=== PATIENT | male | born 1990 ===

== ENCOUNTER 2019-08-05 06:09 | Observation (INO) | payer OTHER ==
[2019-08-05] MEDS ORDERED: SODIUM CHLORIDE 0.9% 1000 ML IV SOLN IV ONE (06:34)
[2019-08-05] MEDS ORDERED: LORazepam 2 MG/ML VIAL ONE (06:34)
[2019-08-05] MEDS ORDERED: ZIPRASIDONE MESYLATE 20 MG VIAL IM ONE ×2 (06:34→06:37)
[2019-08-05] MEDS ORDERED: WATER FOR INJ Sterile (PF) 10 ML ONE (06:35)
[2019-08-05] MEDS ORDERED: LORazepam 2 MG/ML VIAL IM ONE (06:36)
[2019-08-05] MEDS ORDERED: PIPERACIL/TAZOBACTA 4.5/NS 100 4.5 GM/100 ML VIAL IV ONE (06:39)
--- NOTE | 2019-08-05 06:59 | Emergency Department Report ---
ED General Adult HPI - General Chief complaint: Altered Mental Status Stated complaint: SELF DESTRUCTIVE BEHAVIOR Time Seen by Provider: 08/05/19 06:23 Source: EMS, client services coordinator Mode of arrival: Ambulatory Limitations: Altered Mental Status - History of Present Illness Initial comments: This is a 29 year old man with a psychiatric disorder treated with Remeron. His family has brought him here today extensively as he is not acting right. He has been biting his thumb and pinching his knee both on the left. He is not acting the way he usually does. He is also wandering and difficult to control. They did not identify any other specific problem. They denied a full systems review to include fever or chills. The patient probably has some communication difficulty at his baseline. In addition the family speaks Qatari. I am able to get the basic history from the family in Uzbek. They are not identifying any other problem on systems review. However, the patient presents with a significant tachycardia. He does feel warm to the touch. His axillary temperature was greater than 99. The oral temperature was unreliable per the nurse. Later a steroid believe arrived at the hospital. Her Uzbek was a bit improved. On reassessment the patient was also speaking Uzbek. We're both concerned about the self-inflicted red and painful area that was secondary to his s hipinching of the patient's left knee. -: hour(s), days(s) Location: upper extremity (biting fingers) Severity scale (0 -10): 0 - Related Data Allergies Allergy/AdvReac Type Severity Reaction Status Date / Time No Known Allergies Allergy Unverified 08/05/19 06:33 ED Review of Systems ROS: Stated complaint: SELF DESTRUCTIVE BEHAVIOR Other details as noted in HPI Comment: Unobtainable due to pts medical conditions (unobtainable from the patient but all other systems reviewed and negative per the family.) ED Past Medical Hx - Past Medical History Previous Medical History?: Yes Additional medical history: Depression - Surgical History Past Surgical History?: No - Social History Smoking Status: Never Smoker Substance Use Type: None ED Physical Exam - General Limitations: Altered Mental Status General appearance: other (feels warm, agitated) - Head Head exam: Present: atraumatic, normocephalic - Eye Eye exam: Present: normal appearance. Absent: scleral icterus - ENT ENT exam: Present: mucous membranes dry - Neck Neck exam: Present: normal inspection. Absent: tenderness, meningismus - Respiratory Respiratory exam: Present: normal lung sounds bilaterally. Absent: respiratory distress - Cardiovascular Cardiovascular Exam: Present: regular rate, tachycardia - GI/Abdominal GI/Abdominal exam: Present: soft, normal bowel sounds. Absent: distended, tenderness, guarding, rebound, rigid - Extremities Exam Extremities exam: Present: full ROM, normal capillary refill, other (bite of the left distal thumb through dermis ). Absent: pedal edema, joint swelling - Back Exam Back exam: Present: other (unable to inspect) - Neurological Exam Neurological exam: Present: altered, CN II-XII intact (as testable). Absent: motor sensory deficit - Psychiatric Psychiatric exam: Present: agitated - Skin Skin exam: Present: warm, dry, normal color, other (finger bite). Absent: rash ED Course Vital Signs 08/05/19 08/05/19 08/05/19 06:16 06:20 06:30 Temperature 99.5 F Pulse Rate 125 H 134 H 126 H Respiratory 17 22 21 Rate Blood Pressure 153/103 153/103 Blood Pressure 151/93 [Left] O2 Sat by Pulse 99 98 98 Oximetry 08/05/19 08/05/19 08/05/19 06:46 07:00 07:16 Temperature Pulse Rate 124 H 110 H 115 H Respiratory 24 17 16 Rate Blood Pressure 151/93 146/97 146/97 Blood Pressure [Left] O2 Sat by Pulse 98 100 Oximetry 08/05/19 08/05/19 08/05/19 07:25 07:30 07:46 Temperature Pulse Rate 118 H 120 H 111 H Respiratory 19 18 22 Rate Blood Pressure 146/97 146/97 Blood Pressure 146/97 [Left] O2 Sat by Pulse 99 99 98 Oximetry 08/05/19 08/05/19 08/05/19 08:00 08:16 08:30 Temperature Pulse Rate 106 H 107 H 105 H Respiratory 23 22 21 Rate Blood Pressure 97/43 97/43 85/44 Blood Pressure [Left] O2 Sat by Pulse 96 97 95 Oximetry 08/05/19 08/05/19 08:46 09:00 Temperature Pulse Rate 103 H 125 H Respiratory 19 25 H Rate Blood Pressure 85/44 115/74 Blood Pressure [Left] O2 Sat by Pulse 98 98 Oximetry - Reevaluation(s) Reevaluation #1: Patient's mental status has improved with GI and Ativan. He is speaking Uzbek. His sister states he's never had a psychiatric admission. However despite fluids the patient's heart rate is now 135. He is given a dditional fluids. He is given metoprolol and consideration of his tachycardia and elevated. 08/05/19 10:53 08/05/19 10:56 Discussed the patient's persistent tachycardia with the admitting hospitalist Dr. Vaughan. Reevaluation #2: Patient is not medically clear for psychiatric admission. A 1013 will be executed. A sitter has been requested. 08/05/19 10:58 ED Medical Decision Making - Lab Data Result diagrams: 08/05/19 06:45 Laboratory Results - last 24 hr 08/05/19 08/05/19 08/05/19 06:45 06:45 06:45 WBC 11.5 H RBC 5.27 H Hgb 14.2 Hct 43.0 MCV 82 L MCH 27 L MCHC 33 RDW 13.3 Plt Count 256 Lymph % (Auto) 9.9 L Castro % (Auto) 4.7 Eos % (Auto) 1.5 Baso % (Auto) 0.3 Lymph # 1.1 L Castro # 0.5 Eos # 0.2 Baso # 0.0 Seg Neutrophils % 83.6 H Seg Neutrophils # 9.6 H PT 14.0 INR 1.07 APTT 28.9 POC Glucose Lactic Acid 2.40 H* Magnesium Total Creatine Kinase CK-MB (CK-2) CK-MB (CK-2) Rel Index Troponin T NT-Pro-B Natriuret Pep TSH Free T4 Urine Color Urine Turbidity Urine pH Ur Specific Cascade Urine Protein Urine Glucose (UA) Urine Ketones Urine Blood Urine Nitrite Urine Bilirubin Urine Urobilinogen Ur Leukocyte Esterase Urine WBC (Auto) Urine RBC (Auto) Urine Opiates Screen Urine Methadone Screen Ur Barbiturates Screen Ur Phencyclidine Scrn Ur Amphetamines Screen U Benzodiazepines Scrn Urine Cocaine Screen U Marijuana (THC) Screen Drugs of Abuse Note 08/05/19 08/05/19 08/05/19 06:45 06:45 07:27 WBC RBC Hgb Hct MCV MCH MCHC RDW Plt Count Lymph % (Auto) Castro % (Auto) Eos % (Auto) Baso % (Auto) Lymph # Castro # Eos # Baso # Seg Neutrophils % Seg Neutrophils # PT INR APTT POC Glucose Lactic Acid 1.20 Magnesium 1.40 L Total Creatine Kinase 295 H CK-MB (CK-2) 2.6 CK-MB (CK-2) Rel Index 0.8 Troponin T < 0.010 NT-Pro-B Natriuret Pep 15.77 TSH 1.390 Free T4 1.58 H Urine Color Urine Turbidity Urine pH Ur Specific Cascade Urine Protein Urine Glucose (UA) Urine Ketones Urine Blood Urine Nitrite Urine Bilirubin Urine Urobilinogen Ur Leukocyte Esterase Urine WBC (Auto) Urine RBC (Auto) Urine Opiates Screen Urine Methadone Screen Ur Barbiturates Screen Ur Phencyclidine Scrn Ur Amphetamines Screen U Benzodiazepines Scrn Urine Cocaine Screen U Marijuana (THC) Screen Drugs of Abuse Note 08/05/19 08/05/19 08/05/19 08:00 Unknown Unknown WBC RBC Hgb Hct MCV MCH MCHC RDW Plt Count Lymph % (Auto) Castro % (Auto) Eos % (Auto) Baso % (Auto) Lymph # Castro # Eos # Baso # Seg Neutrophils % Seg Neutrophils # PT INR APTT POC Glucose 104 Lactic Acid Magnesium Total Creatine Kinase CK-MB (CK-2) CK-MB (CK-2) Rel Index Troponin T NT-Pro-B Natriuret Pep TSH Free T4 Urine Color Yellow Urine Turbidity Clear Urine pH 7.0 Ur Specific Cascade 1.005 Urine Protein <15 mg/dl Urine Glucose (UA) Neg Urine Ketones Neg Urine Blood Sm Urine Nitrite Neg Urine Bilirubin Neg Urine Urobilinogen < 2.0 Ur Leukocyte Esterase Neg Urine WBC (Auto) 1.0 Urine RBC (Auto) 13.0 Urine Opiates Screen Presumptive negative Urine Methadone Screen Presumptive negative Ur Barbiturates Screen Presumptive negative Ur Phencyclidine Scrn Presumptive negative Ur Amphetamines Screen Presumptive negative U Benzodiazepines Scrn Presumptive negative Urine Cocaine Screen Presumptive negative U Marijuana (THC) Screen Presumptive negative Drugs of Abuse Note Disclamer - EKG Data -: EKG Interpreted by Ma EKG shows normal: sinus rhythm, axis, intervals, QRS complexes, ST-T waves Rate: tachycardia - EKG Data Interpretation: no acute changes - Radiology Data Radiology results: report reviewed (chest x-ray no acute process), image reviewed Critical care attestation.: If time is entered above; I have spent that time in minutes in the direct care of this critically ill patient, excluding procedure time. ED Disposition Clinical Impression: Acute psychosis, Tachycardia, Elevated serum free T4 level, Elevated lactic acid level Disposition: OP ADMIT IP TO THIS HOSP Is pt being admited?: Yes Does the pt Need Aspirin: Yes Condition: Stable Referrals: PRIMARY CARE, [Primary Care Provider] - 3-5 Days Time of Disposition: 11:00
[2019-08-05 07:04] LABS: Basophils % (Auto) 0.3 % (0.0-1.8); Eosinophils # (Auto) 0.2 K/mm3 (0.0-0.4); Eosinophils % (Auto) 1.5 % (0.0-4.3); Hemoglobin 14.2 gm/dl (11.8-15.2); Lymphocytes # (Auto) 1.1 K/mm3 (1.2-5.4); Lymphocytes % (Auto) 9.9 % (13.4-35.0); Mean Corpuscular HGB Conc 33 % (32-34); Mean Corpuscular Volume 82 fl (84-94); Monocytes # (Auto) 0.5 K/mm3 (0.0-0.8); Monocytes % (Auto) 4.7 % (0.0-7.3); Platelet Count 256 K/mm3 (140-440); Red Blood Count 5.27 M/mm3 (3.65-5.03); Red Cell Distribution Width 13.3 % (13.2-15.2)
[2019-08-05 07:11] LABS: Bilirubin,Urine NEG (Negative); Blood,Urine SM (Negative); Color,Urine Yellow (Yellow); Protein,Urine <15 mg/dL mg/dL (Negative); Urobilinogen,Urine < 2.0 mg/dL (<2.0)
[2019-08-05 07:15] LABS: INR 1.07 (0.87-1.13); Partial Thromboplastin Time 28.9 Sec. (24.2-36.6)
--- NOTE | 2019-08-05 07:15 | XRay Report ---
CHEST 1 VIEW INDICATION: htn. Altered mental status COMPARISON: None FINDINGS: Support devices: None. Heart: Within normal limits. Lungs/Pleura: No acute air space or interstitial disease. Additional findings: None. IMPRESSION: 1. No acute findings. Signer Name: Phil Yousif MD Signed: 08/05/2019 7:10 AM Workstation Name: [id number]
[2019-08-05 07:18] LABS: Amphetamine Screen,Urine PRESUMPTIVE NEGATIVE; Benzodiazepines Screen,Urine PRESUMPTIVE NEGATIVE; Cannabinoid Screen,Urine PRESUMPTIVE NEGATIVE; Cocaine Screen,Urine PRESUMPTIVE NEGATIVE; Methadone Screen,Urine PRESUMPTIVE NEGATIVE; Opiate Screen,Urine PRESUMPTIVE NEGATIVE
[2019-08-05 07:23] LABS: Creatine Kinase MB 2.6 ng/mL (0.0-4.0)
[2019-08-05 07:29] LABS: Free T4 (Free Thyroxine) 1.58 ng/dL (0.76-1.46)
[2019-08-05] MEDS ORDERED: MAGNESIUM SULFATE 2 GM/50 ML BAG IV ONE (09:45)
[2019-08-05] MEDS ORDERED: SODIUM CHLORIDE 0.9% 1000 ML 1,000 ML IV ONE ×2 (10:16→11:05)
--- NOTE | 2019-08-05 10:29 | History and Physical Report ---
History of Present Illness Date of examination: 08/05/19 Date of admission: 08/05/19 Chief complaint: Altered level of consciousness and bizarre behavior History of present illness: 29-year-old male patient with significant past medical history of some unknown psych disorder, no proper history either from the patient Or the family at the bedside was brought to the emergency room with altered level of consciousness, bizarre behavior Agitation, biting his thumb pinching his knees and acting strange. Family reports that he has been wandering and was very difficult to control. Patient recently returned from [place] in April 2019, And acting strange ever since he returned No history suggestive of fever, nausea vomiting, shortness of breath or cough Family reports that he has history of depression and is on some psych medications No other history available At the time of my evaluation patient is confused speaking only 1 or 2 words in Indonesian Agitated, requiring restraints Initial work-up is consistent with leukocytosis hypomagnesemia mild elevation of CK and abnormal free T4 urine drug screen negative Chest x-ray no acute abnormality Past History Past Medical History: other (Depression) Past Surgical History: No surgical history (No known surgical history) Social history: no significant social history (No known social history) Family history: no significant family history (No known family history) Medications and Allergies Allergies Allergy/AdvReac Type Severity Reaction Status Date / Time No Known Allergies Allergy Unverified 08/05/19 06:33 Home Medications Medication Instructions Recorded Confirmed Last Taken Type Mirtazapine 30 mg PO QHS 08/05/19 08/05/19 08/04/19 History Sertraline [Zoloft] 100 mg PO QAM 08/05/19 08/05/19 08/04/19 History Active Meds: Active Medications Sodium Chloride (Nacl 0.9% 1000 Ml) 1,000 mls @ 999 mls/hr IV BOLUS ONE Stop: 08/05/19 11:16 Last Admin: 08/05/19 10:27 Dose: 999 mls/hr Documented by: Review of Systems ROS unobtainable: due to mental status Exam - Constitutional Vitals: Temp Pulse Resp BP Pulse Ox 99.5 F 125 H 25 H 115/74 98 08/05/19 06:16 08/05/19 09:00 08/05/19 09:00 08/05/19 09:00 08/05/19 09:00 General appearance: Present: mild distress, other (Agitated, confused) - EENT Eyes: Present: PERRL, EOM intact - Neck Neck: Present: supple, normal ROM - Respiratory Respiratory effort: normal Respiratory: bilateral: diminished, negative: rales, rhonchi, wheezing - Cardiovascular Rhythm: regular Heart Sounds: Present: S1 & S2 (Tachycardia) - Extremities Extremities: no ischemia, abnormal (Bite aide left thumb) - Abdominal General gastrointestinal: Present: soft, non-distended, normal bowel sounds - Integumentary Integumentary: Present: clear, warm - Musculoskeletal Musculoskeletal: other (Unable to assess as patient is altered) - Psychiatric Psychiatric: agitated (Confused), other (Unable to assess) - Neurologic Neurologic: moves all extremities Results - Labs CBC & Chem 7: 08/05/19 06:45 Labs: Abnormal lab results 08/05/19 08/05/19 08/05/19 Range/Units 06:45 06:45 06:45 WBC 11.5 H (4.5-11.0) K/mm3 RBC 5.27 H (3.65-5.03) M/mm3 MCV 82 L (84-94) fl MCH 27 L (28-32) pg Lymph % (Auto) 9.9 L (13.4-35.0) % Lymph # 1.1 L (1.2-5.4) K/mm3 Seg Neutrophils % 83.6 H (40.0-70.0) % Seg Neutrophils # 9.6 H (1.8-7.7) K/mm3 Lactic Acid 2.40 H* (0.7-2.0) mmol/L Magnesium 1.40 L (1.7-2.3) mg/dL Total Creatine Kinase 295 H (55-170) units/L Free T4 (0.76-1.46) ng/dL 08/05/19 Range/Units 06:45 WBC (4.5-11.0) K/mm3 RBC (3.65-5.03) M/mm3 MCV (84-94) fl MCH (28-32) pg Lymph % (Auto) (13.4-35.0) % Lymph # (1.2-5.4) K/mm3 Seg Neutrophils % (40.0-70.0) % Seg Neutrophils # (1.8-7.7) K/mm3 Lactic Acid (0.7-2.0) mmol/L Magnesium (1.7-2.3) mg/dL Total Creatine Kinase (55-170) units/L Free T4 1.58 H (0.76-1.46) ng/dL Assessment and Plan --Metabolic encephalopathy/altered level of consciousness Probably secondary to underlying psych disorder Supportive care , neurochecks CT head without contrast --Acute psychosis/bizarre behavior; Patient has history of psych disorder Consult psych, Ativan as needed --H/O Depression: Consult psych --SIRS : Leukocytosis, tachycardia, tachypnea, lactic acidosis Closely monitor --Hypomagnesemia; Replace with mag sulfate monitor electrolytes --Abnormal thyroid function tests; Repeat thyroid panel, and address accordingly --Restraints for safety --DVT prophylaxis Lovenox Follow psych evaluation and recommendations Consider neurology evaluation, neuro work-up Lumbar puncture , MRI brain ,if no improvement of symptoms Will consider ID evaluation as patient recently visited [facility] To rule out infectious causes of patient's encephalopathy Closely monitor and adjust management as needed Plan of care reviewed with the patient and his family Mainly Indonesian-speaking sister
[2019-08-05] MEDS ORDERED: LORazepam 2 MG/ML VIAL IV ONE (10:44)
[2019-08-05] MEDS ORDERED: METOPROLOL TARTRATE 5 MG/5 ML INJ IV ONE (10:45)
[2019-08-05] MEDS: ALPRAZolam 0.5 MG TAB PO PRN ×2 (15:00→21:42)
[2019-08-05] MEDS: METOPROLOL TARTRATE 25 MG TAB PO SCH (21:41)
[2019-08-06] MEDS: LORazepam 2 MG/ML VIAL IV PRN ×2 (02:33→07:02)
[2019-08-06] MEDS: ALPRAZolam 0.5 MG TAB PO PRN ×2 (05:26→21:47)
[2019-08-06] MEDS ORDERED: LORazepam 2 MG/ML VIAL IM SCH (07:30)
[2019-08-06 08:31] LABS: Basophils # (Auto) 0.1 K/mm3 (0.0-0.1); Basophils % (Auto) 1.1 % (0.0-1.8); Eosinophils # (Auto) 0.6 K/mm3 (0.0-0.4); Hematocrit 37.8 % (35.5-45.6); Hemoglobin 12.3 gm/dl (11.8-15.2); Lymphocytes # (Auto) 1.4 K/mm3 (1.2-5.4); Lymphocytes % (Auto) 17.1 % (13.4-35.0); Mean Corpuscular HGB Conc 33 % (32-34); Mean Corpuscular Volume 82 fl (84-94); Monocytes # (Auto) 0.6 K/mm3 (0.0-0.8); Monocytes % (Auto) 7.7 % (0.0-7.3); Platelet Count 232 K/mm3 (140-440); Red Blood Count 4.62 M/mm3 (3.65-5.03); Red Cell Distribution Width 13.4 % (13.2-15.2)
[2019-08-06 09:04] LABS: Free T4 (Free Thyroxine) 1.3 ng/dL (0.76-1.46)
--- NOTE | 2019-08-06 10:41 | Consultation ---
History of Present Illness - Reason for Consult Consult date: 08/06/19 Reason for consult: altered mental status and bizarre behavior - Chief Complaint Chief complaint: Altered level of consciousness and bizarre behavior - History of Present Psychiatric Illness I reviewed the patient's medical record and discussed with the nursing staff the patient's progress. The nurse notes states the patient seems confused, he keeps sitting up and laying back down. He is talking to himself, when he lays back down, he is covering his face with the sheet, and he refused to take it off from his face. Spoke with Charge nurse about setting up [employer]. She says she will have to borrow one from next door. Baylee Myers is a 29y/o male patient who is said to have been admitted for altered mental status, bizarre behavior, and agitation. According to the medical record, the patient has history of depression other psych conditions that he takes medication for. During my first interaction with the patient this morning, he was somnolent. He does not respond to vigorous tactile stimuli. His mother and a sitter are at bedside. The sitter states the patient was "very agitated and the nurse gave him something." I went and seen another patient, and came back to see this patient. He is sitting up in bed with one eye closed. He has his leg pulled up. He is confused, and somewhat bizarre. The patient says he's in "[place]." When oriented to the hospital, he states "yes, the hospital. The emergency room." The patient seems to be obsessing over his knee. He is hitting on his knee with his fist. He tells me his "knee is hurting." He then starts touching and pinching his knee "can you help my knee." When asking the patient about hallucinations, he points toward the door and is peering out in the hallway. The patient starts back obsessing over his knee when asked about suicidal ideation. PAST PSYCHIATRIC HISTORY: Unable to assess due to the patient's disorganizations PAST MEDICAL HISTORY: None reported Family Psychiatric History None reported SOCIAL HISTORY Unable to assess due to the patient's disorganization ROS: Unable to assess due to the patient's disorganization MSE Appearance: Awake. Dressed appropriately Behavior: Bizarre, disorganized Mood: Affect: Restricted Thought Process: responding to internal stimuli Speech: Normal tone and pace Thought Content Unable to assess Consciousness: Alert Cognition/Memory: Impaired Insight/Judgment: Limited Assessment: Schizoaffective Disorder Plan Medications Risperidone 0.25mg po BID to decrease psychosis Prozac 10mg po qd Depakote DR 125mg BID to improve mood Continue home Zoloft 100mg po daily Haldol 5mg po q6h prn agitation Medical: Per primary Disposition: The patient meets the requirement for acute inpatient psychiatric treatment at this time. He may transfer to an appropriate psychiatric facility upon medical clearance. Will continue to follow until transferred Please call with any questions or concerns. Thank you for this consult. Medications and Allergies Allergies Allergy/AdvReac Type Severity Reaction Status Date / Time No Known Allergies Allergy Unverified 08/05/19 06:33 Home Medications Medication Instructions Recorded Confirmed Last Taken Type Mirtazapine 30 mg PO QHS 08/05/19 08/05/19 08/04/19 History Sertraline [Zoloft] 100 mg PO QAM 08/05/19 08/05/19 08/04/19 History Active Meds: Active Medications Alprazolam (Xanax) 0.5 mg PO Q8H PRN PRN Reason: Anxiety Last Admin: 08/06/19 05:26 Dose: 0.5 mg Documented by: Lorazepam (Ativan) 1 mg IV Q4H PRN PRN Reason: Agitation Last Admin: 08/06/19 07:02 Dose: 1 mg Documented by: Lorazepam (Ativan) 1 mg IM ONCE [facility] Stop: 08/06/19 15:00 Last Admin: 08/06/19 07:28 Dose: 1 mg Documented by: Metoprolol Tartrate (Metoprolol) 12.5 mg PO BID [facility] Last Admin: 08/05/19 21:41 Dose: 12.5 mg Documented by: Mirtazapine (Remeron) 30 mg PO QHS [facility] Mental Status Exam - Vital signs Last Vital Signs Temp 98.4 F 08/06/19 05:13 Pulse 122 H 08/06/19 05:13 Resp 16 08/06/19 05:13 BP 148/98 08/06/19 05:13 Pulse Ox 98 08/06/19 05:13 Results Result Diagrams: 08/06/19 08:11 Abnormal lab results 08/06/19 08/06/19 Range/Units 08:11 08:11 MCV 82 L (84-94) fl MCH 27 L (28-32) pg [place] % (Auto) 7.7 H (0.0-7.3) % Eos % (Auto) 7.0 H (0.0-4.3) % Eos # 0.6 H (0.0-0.4) K/mm3 Phosphorus 1.30 L (2.5-4.5) mg/dL Magnesium 1.50 L (1.7-2.3) mg/dL All other labs normal.
[2019-08-06] MEDS ORDERED: HALOPERIDOL LACTATE 5 MG/1 ML INJ IM PRN (11:04)
[2019-08-06] MEDS: risperiDONE 0.25 MG TAB PO SCH ×2 (13:57→21:37)
[2019-08-06] MEDS: SERTRALINE 100 MG TAB PO SCH (13:57)
[2019-08-06] MEDS: DIVALPROEX DR 125 MG TAB PO SCH ×2 (13:57→21:37)
[2019-08-06] MEDS: METOPROLOL TARTRATE 25 MG TAB PO SCH ×2 (13:58→21:43)
--- NOTE | 2019-08-06 15:45 | Cat Scan Report ---
CT head without contrast INDICATION : altered level of consciousness/bizarre behavior. TECHNIQUE: Axial imaging performed from the skull apex through the skull base without the use of con trast. All CT scans at this location are performed using CT dose reduction for ALARA by means of aut omated exposure control. COMPARISON: None FINDINGS: Parenchyma: No acute intracranial hemorrhage or parenchymal abnormality. Ventricles: Ventricles are normal in size and appear symmetric. Soft tissues: Soft tissues including the orbits appear normal. Bones: No acute osseous abnormality. Sinuses: Sinuses and mastoid air cells are clear. IMPRESSION: No evidence of acute intracranial abnormality. If neurologic symptoms persist or additional evaluatio n is clinically indicated, consider MRI. Signer Name: Christian Ray MD Signed: 08/06/2019 3:41 PM Workstation Name: [id number]
[2019-08-06] MEDS ORDERED: POTASSIUM PHOSPHATE 40 MMOL in SODIUM CHLORIDE 0.9% 500 ML 500 ML IV ONE (16:43)
[2019-08-06] MEDS ORDERED: MAGNESIUM SULFATE 2 GM/50 ML BAG IV ONE (16:43)
[2019-08-06] MEDS: FLUoxetine 10 MG TAB PO SCH (17:44)
--- NOTE | 2019-08-06 19:54 | Progress Note ---
Assessment and Plan Assessment and plan: --Hypophosphatemia; replace with K-Phos --Hypomagnesemia; replenished with magnesium sulfate Monitor electrolytes --Acute psychosis/bizarre behavior; Patient has history of psych disorder Psych evaluation noted and appreciated, Ativan as needed --Metabolic encephalopathy/altered level of consciousness Significantly improved today, supportive care CT head without contrast --H/O Depression: Management per psych --SIRS : Leukocytosis resolved Slight improvement in tachycardia, tachypnea, lactic acidosis Closely monitor --Abnormal thyroid function tests; repeat thyroid functions normal --Restraints for safety --DVT prophylaxis Lovenox Psych evaluation recommendations noted and appreciated Plan of care discussed with the patient and multiple family members at the bedside 1013 status History Interval history: Patient seen and examined medical records reviewed Patient is more calm and quiet today pacing in the room along with the family members Not in acute distress, responding to simple questions appropriately Psych evaluation recommendations noted and appreciated Vital signs noted Hospitalist Physical - Constitutional Vitals: Temp Pulse Resp BP Pulse Ox 98.2 F 96 H 20 127/77 97 08/06/19 19:35 08/06/19 19:35 08/06/19 19:35 08/06/19 19:35 08/06/19 19:35 General appearance: Present: no acute distress, well-nourished, other (Calm and quiet) - EENT Eyes: Present: PERRL, EOM intact - Neck Neck: Present: supple, normal ROM - Respiratory Respiratory effort: normal Respiratory: bilateral: diminished, negative: rales, rhonchi, wheezing - Cardiovascular Rhythm: regular Heart Sounds: Present: S1 & S2 - Extremities Extremities: no ischemia, No edema - Abdominal General gastrointestinal: soft, non-tender, non-distended, normal bowel sounds - Integumentary Integumentary: Present: clear, warm - Psychiatric Psychiatric: appropriate mood/affect, cooperative, agitated (At times) - Neurologic Neurologic: moves all extremities Results - Labs CBC & Chem 7: 08/06/19 08:11 Labs: Laboratory Last Values WBC 8.1 K/mm3 (4.5-11.0) 08/06/19 08:11 RBC 4.62 M/mm3 (3.65-5.03) 08/06/19 08:11 Hgb 12.3 gm/dl (11.8-15.2) 08/06/19 08:11 Hct 37.8 % (35.5-45.6) 08/06/19 08:11 MCV 82 fl (84-94) L 08/06/19 08:11 MCH 27 pg (28-32) L 08/06/19 08:11 MCHC 33 % (32-34) 08/06/19 08:11 RDW 13.4 % (13.2-15.2) 08/06/19 08:11 Plt Count 232 K/mm3 (140-440) 08/06/19 08:11 Lymph % (Auto) 17.1 % (13.4-35.0) 08/06/19 08:11 [place] % (Auto) 7.7 % (0.0-7.3) H 08/06/19 08:11 Eos % (Auto) 7.0 % (0.0-4.3) H 08/06/19 08:11 Baso % (Auto) 1.1 % (0.0-1.8) 08/06/19 08:11 Lymph # 1.4 K/mm3 (1.2-5.4) 08/06/19 08:11 [place] # 0.6 K/mm3 (0.0-0.8) 08/06/19 08:11 Eos # 0.6 K/mm3 (0.0-0.4) H 08/06/19 08:11 Baso # 0.1 K/mm3 (0.0-0.1) 08/06/19 08:11 Seg Neutrophils % 67.1 % (40.0-70.0) 08/06/19 08:11 Seg Neutrophils # 5.4 K/mm3 (1.8-7.7) 08/06/19 08:11 PT 14.0 Sec. (12.2-14.9) 08/05/19 06:45 INR 1.07 (0.87-1.13) 08/05/19 06:45 APTT 28.9 Sec. (24.2-36.6) 08/05/19 06:45 POC Glucose 82 (70-105) 08/05/19 16:08 Lactic Acid 1.30 mmol/L (0.7-2.0) 08/05/19 09:32 Phosphorus 1.30 mg/dL (2.5-4.5) L 08/06/19 08:11 Magnesium 1.50 mg/dL (1.7-2.3) L 08/06/19 08:11 Ammonia 39.0 umol/L (25-60) 08/06/19 08:11 Total Creatine Kinase 295 units/L (55-170) H 08/05/19 06:45 CK-MB (CK-2) 2.6 ng/mL (0.0-4.0) 08/05/19 06:45 CK-MB (CK-2) Rel Index 0.8 (0-4) 08/05/19 06:45 Troponin T < 0.010 ng/mL (0.00-0.029) 08/05/19 06:45 NT-Pro-B Natriuret Pep 15.77 pg/mL (0-450) 08/05/19 06:45 TSH 1.720 mlU/mL (0.270-4.200) 08/06/19 08:11 Free T4 1.30 ng/dL (0.76-1.46) 08/06/19 08:11 Urine Color Yellow (Yellow) 08/05/19 Unknown Urine Turbidity Clear (Clear) 08/05/19 Unknown Urine pH 7.0 (5.0-7.0) 08/05/19 Unknown Ur Specific [place] 1.005 (1.003-1.030) 08/05/19 Unknown Urine Protein <15 mg/dl mg/dL (Negative) 08/05/19 Unknown Urine Glucose (UA) Neg mg/dL (Negative) 08/05/19 Unknown Urine Ketones Neg mg/dL (Negative) 08/05/19 Unknown Urine Blood Sm (Negative) 08/05/19 Unknown Urine Nitrite Neg (Negative) 08/05/19 Unknown Urine Bilirubin Neg (Negative) 08/05/19 Unknown Urine Urobilinogen < 2.0 mg/dL (<2.0) 08/05/19 Unknown Ur Leukocyte Esterase Neg (Negative) 08/05/19 Unknown Urine WBC (Auto) 1.0 /HPF (0.0-6.0) 08/05/19 Unknown Urine RBC (Auto) 13.0 /HPF (0.0-6.0) 08/05/19 Unknown Urine Opiates Screen Presumptive negative 08/05/19 Unknown Urine Methadone Screen Presumptive negative 08/05/19 Unknown Ur Barbiturates Screen Presumptive negative 08/05/19 Unknown Ur Phencyclidine Scrn Presumptive negative 08/05/19 Unknown Ur Amphetamines Screen Presumptive negative 08/05/19 Unknown U Benzodiazepines Scrn Presumptive negative 08/05/19 Unknown Urine Cocaine Screen Presumptive negative 08/05/19 Unknown U Marijuana (THC) Screen Presumptive negative 08/05/19 Unknown Drugs of Abuse Note Disclamer 08/05/19 Unknown Active Medications - Current Medications Current Medications: Generic Name Dose Route Start Last Admin Trade Name Freq PRN Reason Stop Dose Admin Alprazolam 0.5 mg 08/05/19 11:06 08/06/19 05:26 Xanax PO 0.5 mg Q8H PRN Administration Anxiety Divalproex Sodium 125 mg 08/06/19 13:00 08/06/19 13:[address] PO 125 mg BID BELKIS Administration Fluoxetine HCl 10 mg 08/06/19 15:00 08/06/19 17:44 Prozac PO 10 mg QDAY BELKIS Administration Haloperidol Lactate 5 mg 08/06/19 11:04 Haldol IM Q6H PRN Agitation Potassium Phosphate 40 mmol/ 513.3333 mls @ 83 mls/hr 08/06/19 16:43 Sodium Chloride IV 08/06/19 22:54 ONCE ONE Lorazepam 1 mg 08/05/19 18:16 08/06/19 07:02 Ativan IV 1 mg Q4H PRN Administration Agitation Metoprolol Tartrate 12.5 mg 08/05/19 22:00 08/06/19 13:58 Metoprolol PO 12.5 mg BID BELKIS Administration Mirtazapine 30 mg 08/06/19 22:00 Remeron PO QHS BELKIS Risperidone 0.25 mg 08/06/19 13:00 08/06/19 13:57 Risperdal PO 0.25 mg BID BELKIS Administration Sertraline HCl 100 mg 08/06/19 12:00 08/06/19 13:57 Zoloft PO 100 mg QAM BELKIS Administration
[2019-08-06] MEDS ORDERED: MIRTAZAPINE 30 MG TAB PO SCH (22:00)
[2019-08-06] MEDS ORDERED: DOXEPIN 10 MG CAP PO SCH (22:00)
[2019-08-06] MEDS ORDERED: MIRTAZAPINE 30 MG PO SCH (22:00)
[2019-08-07] MEDS: LORazepam 2 MG/ML VIAL IV PRN (02:54)
--- NOTE | 2019-08-07 08:57 | Progress Note ---
Assessment and Plan Assessment and plan: --Hypophosphatemia; replaced with K-Phos corrected --Hypomagnesemia; replenished with magnesium sulfate Corrected --Acute psychosis/bizarre behavior; Patient has history of psych disorder Psych evaluation noted and appreciated, Medication adjusted Ativan as needed Recommend inpatient psych transfer --Metabolic encephalopathy/altered level of consciousness Significantly improved today, supportive care CT head without contrast --H/O Depression: Management per psych --SIRS : Leukocytosis resolved Slight improvement in tachycardia, tachypnea, lactic acidosis Closely monitor --Abnormal thyroid function tests; repeat thyroid functions normal --Restraints for safety --DVT prophylaxis Lovenox Psych evaluation recommendations noted and appreciated Plan of care discussed with the patient and multiple family members at the bedside 1013 status Hospitalist Physical - Constitutional Vitals: Temp Pulse Resp BP Pulse Ox 98.7 F 109 H 20 140/87 100 08/07/19 06:07 08/07/19 06:07 08/07/19 06:07 08/07/19 06:07 08/07/19 06:07 General appearance: Present: no acute distress, well-nourished, other (Calm and quiet) Results - Labs CBC & Chem 7: 08/06/19 08:11 Labs: Laboratory Last Values WBC 8.1 K/mm3 (4.5-11.0) 08/06/19 08:11 RBC 4.62 M/mm3 (3.65-5.03) 08/06/19 08:11 Hgb 12.3 gm/dl (11.8-15.2) 08/06/19 08:11 Hct 37.8 % (35.5-45.6) 08/06/19 08:11 MCV 82 fl (84-94) L 08/06/19 08:11 MCH 27 pg (28-32) L 08/06/19 08:11 MCHC 33 % (32-34) 08/06/19 08:11 RDW 13.4 % (13.2-15.2) 08/06/19 08:11 Plt Count 232 K/mm3 (140-440) 08/06/19 08:11 Lymph % (Auto) 17.1 % (13.4-35.0) 08/06/19 08:11 [place] % (Auto) 7.7 % (0.0-7.3) H 08/06/19 08:11 Eos % (Auto) 7.0 % (0.0-4.3) H 08/06/19 08:11 Baso % (Auto) 1.1 % (0.0-1.8) 08/06/19 08:11 Lymph # 1.4 K/mm3 (1.2-5.4) 08/06/19 08:11 [place] # 0.6 K/mm3 (0.0-0.8) 08/06/19 08:11 Eos # 0.6 K/mm3 (0.0-0.4) H 08/06/19 08:11 Baso # 0.1 K/mm3 (0.0-0.1) 08/06/19 08:11 Seg Neutrophils % 67.1 % (40.0-70.0) 08/06/19 08:11 Seg Neutrophils # 5.4 K/mm3 (1.8-7.7) 08/06/19 08:11 PT 14.0 Sec. (12.2-14.9) 08/05/19 06:45 INR 1.07 (0.87-1.13) 08/05/19 06:45 APTT 28.9 Sec. (24.2-36.6) 08/05/19 06:45 POC Glucose 82 (70-105) 08/05/19 16:08 Lactic Acid 1.30 mmol/L (0.7-2.0) 08/05/19 09:32 Phosphorus 3.70 mg/dL (2.5-4.5) D 08/07/19 05:07 Magnesium 1.70 mg/dL (1.7-2.3) 08/07/19 05:07 Ammonia 39.0 umol/L (25-60) 08/06/19 08:11 Total Creatine Kinase 295 units/L (55-170) H 08/05/19 06:45 CK-MB (CK-2) 2.6 ng/mL (0.0-4.0) 08/05/19 06:45 CK-MB (CK-2) Rel Index 0.8 (0-4) 08/05/19 06:45 Troponin T < 0.010 ng/mL (0.00-0.029) 01/28/20 06:45 NT-Pro-B Natriuret Pep 15.77 pg/mL (0-450) 08/05/19 06:45 TSH 1.720 mlU/mL (0.270-4.200) 08/06/19 08:11 Free T4 1.30 ng/dL (0.76-1.46) 08/06/19 08:11 Urine Color Yellow (Yellow) 08/05/19 Unknown Urine Turbidity Clear (Clear) 08/05/19 Unknown Urine pH 7.0 (5.0-7.0) 08/05/19 Unknown Ur Specific [place] 1.005 (1.003-1.030) 08/05/19 Unknown Urine Protein <15 mg/dl mg/dL (Negative) 08/05/19 Unknown Urine Glucose (UA) Neg mg/dL (Negative) 08/05/19 Unknown Urine Ketones Neg mg/dL (Negative) 08/05/19 Unknown Urine Blood Sm (Negative) 08/05/19 Unknown Urine Nitrite Neg (Negative) 08/05/19 Unknown Urine Bilirubin Neg (Negative) 08/05/19 Unknown Urine Urobilinogen < 2.0 mg/dL (<2.0) 08/05/19 Unknown Ur Leukocyte Esterase Neg (Negative) 08/05/19 Unknown Urine WBC (Auto) 1.0 /HPF (0.0-6.0) 08/05/19 Unknown Urine RBC (Auto) 13.0 /HPF (0.0-6.0) 08/05/19 Unknown Urine Opiates Screen Presumptive negative 08/05/19 Unknown Urine Methadone Screen Presumptive negative 08/05/19 Unknown Ur Barbiturates Screen Presumptive negative 08/05/19 Unknown Ur Phencyclidine Scrn Presumptive negative 08/05/19 Unknown Ur Amphetamines Screen Presumptive negative 08/05/19 Unknown U Benzodiazepines Scrn Presumptive negative 08/05/19 Unknown Urine Cocaine Screen Presumptive negative 08/05/19 Unknown U Marijuana (THC) Screen Presumptive negative 08/05/19 Unknown Drugs of Abuse Note Disclamer 08/05/19 Unknown Active Medications - Current Medications Current Medications: Generic Name Dose Route Start Last Admin Trade Name Freq PRN Reason Stop Dose Admin Alprazolam 0.5 mg 08/05/19 11:06 08/06/19 21:47 Xanax PO 0.5 mg Q8H PRN Administration Anxiety Divalproex Sodium 125 mg 08/06/19 13:00 08/06/19 21:[address] PO 125 mg BID BELKIS Administration Fluoxetine HCl 10 mg 08/06/19 15:00 08/06/19 17:44 Prozac PO 10 mg QDAY BELKIS Administration Haloperidol Lactate 5 mg 08/06/19 11:04 Haldol IM Q6H PRN Agitation Lorazepam 1 mg 08/05/19 18:16 08/07/19 02:54 Ativan IV 1 mg Q4H PRN Administration Agitation Metoprolol Tartrate 12.5 mg 08/05/19 22:00 08/06/19 21:43 Metoprolol PO 12.5 mg BID BELKIS Administration Mirtazapine 30 mg 08/06/19 22:00 08/06/19 21:37 Remeron PO 30 mg QHS BELKIS Administration Risperidone 0.25 mg 08/06/19 13:00 08/06/19 21:37 Risperdal PO 0.25 mg BID BELKIS Administration Sertraline HCl 100 mg 08/06/19 12:00 08/06/19 13:57 Zoloft PO 100 mg QAM BELKIS Administration
[2019-08-07] MEDS: FLUoxetine 10 MG TAB PO SCH (09:30)
[2019-08-07] MEDS: ALPRAZolam 0.5 MG TAB PO PRN (09:30)
[2019-08-07] MEDS: SERTRALINE 100 MG TAB PO SCH (09:30)
[2019-08-07] MEDS: DIVALPROEX DR 125 MG TAB PO SCH (09:30)
[2019-08-07] MEDS: risperiDONE 0.25 MG TAB PO SCH (09:30)
[2019-08-07] MEDS: METOPROLOL TARTRATE 25 MG TAB PO SCH (09:33)
[2019-08-07 09:34] VITALS: BP 144/99
--- NOTE | 2019-08-07 10:26 | Progress Note ---
Subjective - Reason for Consult Consult date: 08/07/19 Reason for consult: AMS, pipe behaivor - Chief Complaint Chief complaint: During my interview this morning, the patient was standing up brushing his teeth. His mother and a sitter are at bedside. The patient is able to engage today and able to communicate effectively. He is calm, cooperative and pleasant. He is polite. He is a/o x 3. He makes good eye contact. When speaking to him he tells me, "if you speak slowly and clearly I can understand." I advised the patient I would use the language line. Spoke with María, from the [place] language line to assess the patient's mental status. The patient states he "feels good." He says, "my knee was hurting from an injury when I was playing ball, but it doesn't hurt anymore." When asked about SI/HI, the patient states "at first I thought about it, but not anymore." He denies hallucinations of any kind. The patient also denies any fear of going home. He states "I can go home but who will give me medicines." Informed the patent that I would give him medication to help with his psychiatric disorders, but his medical doctor would handle any other medications. The patient verbalized understanding and agreement of plan. After getting off the phone, the patient thanked me, smiled and gave me a firm handshake. MSE Appearance: Awake. Dressed appropriately. Brushing his teeth. Behavior: Calm, cooperative, pleasant and polite. Good eye contact Mood: Good Affect: Congruent Thought Process: Goal directed Speech: Normal tone and pace Thought Content Suicidal: Denies Homicidal: Denies Hallucinations: Denies Delusions: Denies Consciousness: Alert Cognition/Memory: Good Insight/Judgment: Good Assessment: Schizoaffective Disorder Plan Scripts given: Risperidone 0.25mg po BID Depakote DR 125mg BID to improve mood Zoloft 100mg po daily Remeron 30mg po qhs Sitter: Defer to primary Medical: Per primary Disposition: The patient does not meet the requirement for acute inpatient psychiatric treatment at this time. He may discharge home once medically cleared. Will sign off. Please call with any questions or concerns. Thank you for this consult. Mental Status Exam - Vital signs Last Vital Signs Temp 98.7 F 08/07/19 06:07 Pulse 104 H 01/30/20 09:33 Resp 20 08/07/19 06:07 BP 144/99 08/07/19 09:33 Pulse Ox 100 08/07/19 06:07
--- NOTE | 2019-08-07 15:04 | Discharge Summary ---
Providers - Providers Date of Admission: 08/06/19 10:59 Date of discharge: 08/07/19 Attending physician: ARON ARORA 08/05/19 18:20 psychiatry consult [Consult to Mental Health] [CONS] Routine Reason For Exam: acute psychosis/ h/o ? 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 Reason for admission: metabolic encephalopathy/acute psychosis/bizarre behavior Condition: Stable Pertinent studies: CT head: neg Hospital course: Discharge diagnosis: --Acute psychosis/bizarre behavior; Patient has history of psych disorder Psych evaluation noted and appreciated, Medication adjusted Ativan as needed Recommend inpatient psych transfer --Hypophosphatemia; replaced with K-Phos, corrected --Hypomagnesemia; replenished with magnesium sulfate,Corrected --Metabolic encephalopathy/altered level of consciousness Significantly improved today, supportive care CT head without contrast --H/O Depression: Management per psych --SIRS : Leukocytosis resolved Slight improvement in tachycardia, tachypnea, lactic acidosis Closely monitor --Abnormal thyroid function tests; repeat thyroid functions normal Disposition: - TO HOME OR SELFCARE Time spent for discharge: 32 min Core Measure Documentation - Palliative Care Palliative Care/ Comfort Measures: Not Applicable - Core Measures Any of the following diagnoses?: none Exam - Constitutional Vitals: Temp Pulse Resp BP Pulse Ox 98.7 F 104 H 20 144/99 100 08/07/19 06:07 08/07/19 09:33 08/07/19 06:07 08/07/19 09:33 08/07/19 06:07 General appearance: Present: no acute distress, well-nourished - EENT Eyes: Present: PERRL, EOM intact - Neck Neck: Present: supple, normal ROM - Respiratory Respiratory effort: normal - Cardiovascular Rhythm: regular Heart Sounds: Present: S1 & S2 - Extremities Extremities: no ischemia, No edema - Abdominal General gastrointestinal: Present: soft, non-tender, non-distended, normal bowel sounds - Integumentary Integumentary: Present: clear, warm - Musculoskeletal Musculoskeletal: strength equal bilaterally - Psychiatric Psychiatric: appropriate mood/affect, cooperative - Neurologic Neurologic: CNII-XII intact, moves all extremities Plan Activity: no restrictions Diet: regular Additional Instructions: [facility] in 3-4 days or. See a private psychiatrist in 1-2 weeks Follow up with: PRIMARY CARE, [Primary Care Provider] - 3-5 Days Prescriptions: Divalproex [Agnieszka JUDGE] 125 mg PO BID #60 tablet RX: Metoprolol [Lopressor TAB] 12.5 mg PO BID #60 tablet Mirtazapine [Remeron 30mg TAB] 30 mg PO QHS #30 tablet RX: risperiDONE [RisperDAL] 0.25 mg PO BID #60 tab Sertraline [Zoloft] 100 mg PO QDAY #30 tablet
== END 2019-08-07 16:50 | disposition home or self-care (01) ==
LOC: ED 06:09 → 3A 11:00 → INTOOBSV 08-06 10:59 → OBSVTOIN 08-06 10:59
PROVIDERS: ADMIT Internal Medicine; ATTEND Internal Medicine
DX: F23 Brief psychotic disorder (principal); E83.42 Hypomagnesemia; E83.39 Other disorders of phosphorus metabolism; R41.82 Altered mental status, unspecified; R94.6 Abnormal results of thyroid function studies; F32.9 Major depressive disorder, single episode, unspecified; G93.41 Metabolic encephalopathy; R65.10 Systemic inflammatory response syndrome (SIRS) of non-infectious origin without acute organ dysfunction; Z79.899 Other long term (current) drug therapy
CPT/HCPCS: 36415; 70450; 71045; 80307; 81001; 82140; 82550; 82553; 82962; 83735; 83880; 84100; 84439; 84443; 84479; 84480; 84481; 84484; 85025; 85610; 85730; 87040; 87086; 93005; 93010; 96361; 96365; 96367; 96372; 96375; 96376; 99284; G0378; J2060; J2543; J3475; J3486; J7030; J7040